=== PATIENT | female | born 1995 | race Caucasian/White ===

== ENCOUNTER 2022-07-28 17:34 | Observation (INO) | payer OTHER ==
[~2022-07-28] VITALS: Ht 165.1 cm; Wt 81.1 kg
[2022-07-28 18:21] LABS: BASO % 0.3 % (0.0-2.0); GRAN # 4.4 K/mm3 (1.4-6.5); GRAN % 73.2 % (42.2-75.2); HEMATOCRIT 41.7 % (37.0-47.0); HEMOGLOBIN 13.9 g/dl (12.5-16.0); LYMPH # 1.2 K/mm3 (1.2-3.4); LYMPH % 19.5 % (20.0-51.0); MEAN CELL VOLUME 92 fl (80.0-100.0); MEAN CORPUSCULAR HEMOGLOBIN 31 pg (27-31); MEAN CORPUSCULAR HGB CONC 33 g/dl (33.0-37.0); MEAN PLATELET VOLUME 10.1 fl (7.4-10.4); MONO # 0.4 K/mm3 (0.1-0.6); MONO % 6.8 % (1.7-9.3); PLATELET COUNT 291 K/mm3 (130-400); RED BLOOD COUNT 4.52 M/mm3 (4.10-5.30)
[2022-07-28 18:25] LABS: COLLECTION METHOD CLEAN CATCH
[2022-07-28 18:33] LABS: MUCOUS Present (NOT PRESENT); URINE BACTERIA Rare /hpf (NONE SEEN); URINE RBC 0-2 /hpf (0-2)
[2022-07-28 18:35] LABS: URINE APPEARANCE Hazy (CLEAR/HAZY); URINE BLOOD Negative (NEGATIVE); URINE COLOR Amber (YELLOW); URINE GLUCOSE Negative (NEGATIVE); URINE KETONE 3+ (NEGATIVE); URINE NITRATE Negative (NEGATIVE); URINE PROTEIN(semi-quant) Negative (NEGATIVE)
[2022-07-28 18:38] LABS: ALBUMIN 3.8 gm/dL (3.5-5.0); BILIRUBIN,TOTAL 3.2 mg/dL (0.2-1.2); CALCIUM 9.2 mg/dL (8.4-10.2); CREATININE, serum 0.69 mg/dL (0.57-1.11); POTASSIUM 4.1 mmol/L (3.5-4.5); TOTAL PROTEIN 7.3 gm/dL (6.2-8.1)
--- NOTE | 2022-07-28 22:00 | NUR ---
PT ARRIVES VIA CART FROM ED. IS ALERT AND ORIENTED X4.
--- NOTE | 2022-07-28 22:12 | NUR ---
PT REPORTS NAUSEA AND ASKING FOR MORE PAIN MEDS, PT REPORTS TORADOL DIDN'T HELP HER PAIN. REATES 04/13 TO ABD. PHENERGAN 12.5MG IVPB GIVEN. IVF NS AT 125CC/HR INFUSING TO RAC WITHOUT REDNESS OR SWELLING.
[2022-07-28 22:17] VITALS: BP 121/78; PULSE 84; TEMP 97.8
--- NOTE | 2022-07-28 22:39 | NUR ---
MORPHINE 4MG IVP GIVEN. PT TO BE NPO AT MIDNIGHT, ICE WATER AND ORANGE JELLO GIVEN AT THIS TIME.
[2022-07-28 23:28] VITALS: BP 120/65; PULSE 82; TEMP 97.5
[2022-07-29] VITALS (8 sets, daily range): BP systolic 102–132; BP diastolic 62–88; PULSE 84–98; TEMP 97.8–98.7
--- NOTE | 2022-07-29 04:00 | NUR ---
PT DENIES NEED FOR PAIN MEDS AT THIS TIME. NPO FOR ERCP TODAY.
[2022-07-29 07:04] LABS: ALBUMIN 3.2 gm/dL (3.5-5.0); BILIRUBIN,TOTAL 4.3 mg/dL (0.2-1.2); CALCIUM 8.6 mg/dL (8.4-10.2); CREATININE, serum 0.68 mg/dL (0.57-1.11); POTASSIUM 3.8 mmol/L (3.5-4.5)
--- NOTE | 2022-07-29 08:34 | NUR ---
CONSENT SIGNED ON CHART, PT TO SURGERY AT THIS TIME.
--- NOTE | 2022-07-29 10:48 | NUR ---
PT BACK FROM PROCEEDURE. VSS, ASSESSMENTS COMPLETE, PT DENIES PAIN. EATING AND DRINKING WITH OUT N/V.
--- NOTE | 2022-07-29 13:12 | NUR ---
Pt lives at home with her , Laci # [phone]. Pt is station here. Pt is independent on all ADLS and does not use any DME. PCP is [facility] and gets medicaitons from [facility]. Pt does not have a DPOA-HC and is not interested at this time. No other needs at this time. DC: Home w/ spouse.
--- NOTE | 2022-07-29 15:12 | NUR ---
DISCHARGE INSTRUCTIONS REVIEWED WITH PT. QUESTIONS ANWERED. PT LEFT AMBULATORY WITH STAFF.
== END 2022-07-29 15:14 | disposition home or self-care (01) ==
LOC: COL.ER 17:34 → SURG 20:40
PROVIDERS: Physician Assistant; ADMIT Surgery
DX: K91.86 Retained cholelithiasis following cholecystectomy (principal); K31.89 Other diseases of stomach and duodenum
CPT/HCPCS: C1769; G0378; J1885; J1956; J2270; J2405; J2550; J2704; J3010; J7030; Q9967

== ENCOUNTER → 2023-11-18 | Outpatient (REF) | payer OTHER | LOC: ZCOL.LAB 16:07 | DX: J32.9 Chronic sinusitis, unspecified (principal) ==